=== PATIENT | female | born 1995 | race Caucasian/White ===

== ENCOUNTER 2017-10-17 17:00 | Emergency (ER) | payer SELFPAY ==
[2017-10-17 17:54] VITALS: BP 116/71
--- NOTE | 2017-10-17 18:31 | ED ---
Throat Pain/Nasal Congestion - HPI Summary HPI Summary: 22 yr old female with the complaint of fever, chills, sore throat and swollen glands in throat. Ill for a little over a day. no stridor, no drooling. - History of Current Complaint Chief Complaint: UCGeneralIllness Time Seen by Provider: 10/17/17 17:57 - Allergies/Home Medications Allergies/Adverse Reactions: Allergies Allergy/AdvReac Type Severity Reaction Status Date / Time Amoxicillin Allergy Swelling Verified 10/17/17 17:47 Of Face,Lips,& Throat Dicyclomine Allergy Swelling Verified 10/17/17 17:47 Of Face,Lips,& Throat Penicillins Allergy Swelling Verified 10/17/17 17:47 Of Face,Lips,& Throat Red Dye Allergy Swelling Verified 10/17/17 17:47 Of Face,Lips,& Throat Home Medications: Home Medications Albuterol HFA INHALER* [Ventolin HFA Inhaler*] 2 puff INH Q6H PRN 10/17/17 [ History Confirmed 10/17/17] Ibuprofen TAB* [Advil TAB*] 400 mg PO Q6H PRN 10/17/17 [History Confirmed ] PMH/Surg Hx/FS Hx/Imm Hx Previously Healthy: Yes Respiratory History: Reports: Hx Asthma Infectious Disease History: No Infectious Disease History: Denies: Traveled Outside the [place] in Last 30 Days - Family History Known Family History: Positive: None - Social History Occupation: Student Lives: Dormitory/Roommates Alcohol Use: None Substance Use Type: Reports: None Smoking Status (MU): Never Smoked Tobacco Review of Systems Positive: Fever, Chills Positive: Sore Throat All Other Systems Reviewed And Are Negative: Yes Physical Exam Triage Information Reviewed: Yes Vital Signs On Initial Exam: Initial Vitals Temp Pulse Resp BP Pulse Ox 98.9 F 96 22 116/71 100 10/17/17 17:49 10/17/17 17:49 10/17/17 17:49 10/17/17 17:49 10/17/17 17:49 Vital Signs Reviewed: Yes Appearance: Positive: Well-Appearing, No Pain Distress Skin: Positive: Warm, Skin Color Reflects Adequate Perfusion Head/Face: Positive: Normal Head/Face Inspection Eyes: Positive: EOMI ENT: Positive: Pharyngeal erythema - mild, TMs normal. Negative: Nasal congestion Neck: Positive: Enlarged Nodes @ - mild anterior superior Respiratory/Lung Sounds: Positive: Clear to Auscultation, Breath Sounds Present , Decreased Breath Sounds Cardiovascular: Positive: RRR. Negative: Murmur Musculoskeletal: Positive: Strength/ROM Intact Neurological: Positive: Sensory/Motor Intact, Alert, Oriented to Person Place, Time, CN Intact II-III Psychiatric: Positive: Normal - [place] Coma Scale Best Eye Response: 4 - Spontaneous Best Motor Response: 6 - Obeys Commands Best Verbal Response: 5 - Oriented Coma Scale Total: 15 Diagnostics - Vital Signs Vital Signs Temp Pulse Resp BP Pulse Ox 10/17/17 17:49 98.9 F 96 22 116/71 100 - Laboratory Lab Results: Lab Results 10/17/17 Range/Units 18:10 Group A Strep Rapid Negative (Negative) Lab Statement: Any lab studies that have been ordered have been reviewed, and results considered in the medical decision making process. EENT Course/Dx - Course Course Of Treatment: 22 yr old with URI/pharyngitis. FU with [facility] - Diagnoses Provider Diagnoses: Pharyngitis Discharge - Discharge Plan Condition: Good Disposition: HOME Patient Education Materials: Pharyngitis (ED) Referrals: No Primary Care Phys,NOPCP [Primary Care Provider] - [facility] [Outside]
== END 2017-10-17 18:35 | disposition home or self-care (01) ==
LOC: UCCORT 17:00
DX: J02.9 Acute pharyngitis, unspecified (principal); R50.9 Fever, unspecified; R59.1 Generalized enlarged lymph nodes; J45.909 Unspecified asthma, uncomplicated; Z88.1 Allergy status to other antibiotic agents; Z88.0 Allergy status to penicillin
CPT/HCPCS: 87651; 99201; G0463